=== PATIENT | male | born 1985 | race Caucasian/White ===

== ENCOUNTER → 2016-08-03 | Outpatient (CLI) | payer OTHER ==
--- NOTE | 2016-08-03 15:39 | CT ---
EXAM DESCRIPTION: Soft Tissue Neck w/Contrast CLINICAL HISTORY: CERVICAL LYMPHADENOPATHY COMPARISON: None. TECHNIQUE: Postcontrast CT images of the neck are obtained with coronal and sagittal reconstructed images. CT scan done according to ALARA (As Low As Reasonably Achievable). FINDINGS: Mild mucosal thickening is seen in the maxillary sinuses. Visualized skull base is unremarkable. Bilateral parotid and submandibular glands are normal and. No abnormal mass or enhancement in the posterior pharyngeal soft tissue or base of the tongue is seen. The epiglottis and vocal cords are unremarkable. Thyroid is unremarkable. Vasculature is within normal limits. There are nonspecific less than 1 cm submandibular and cervical chain lymph nodes bilaterally. There is a left submandibular lymph node measuring 1.2 x 1.2 x 3.1 cm. Osseous structures are unremarkable. IMPRESSION: Mildly enlarged left submandibular lymph node is nonspecific. There are other less than 1 cm nonspecific cervical chain lymph nodes in the neck bilaterally. Subacute chronic bilateral maxillary sinus disease is noted. Electronically signed by: Julian Avitia MD 08/03/2016 3:39 PM CDT
== END | disposition home or self-care (01) ==
LOC: CT 11:48
PROVIDERS: ATTEND Family Medicine
DX: R59.0 Localized enlarged lymph nodes (principal)

== ENCOUNTER → 2016-11-11 | Outpatient (CLI) | payer SELFPAY | END | disposition home or self-care (01) | LOC: LAB.REF 08:11 → EDSTATUS 11:02 | PROVIDERS: ATTEND Nurse Practitioner Family | DX: E34.9 Endocrine disorder, unspecified (principal) ==

== ENCOUNTER 2016-12-04 11:09 | Emergency (ER) | payer OTHER ==
--- NOTE | 2016-12-04 11:42 | ED.PDOC ---
History of Present Illness - General Chief Complaint: Problem Stated Complaint: Possible epididymitis Time Seen by Provider: 12/04/16 11:39 Source: patient Exam Limitations: no limitations - History of Present Illness Initial Comments: Ivan العلي 31 y/o male with history of recurrent epidydimytis stated has another exacerbation which started yesterday on his left testes.Denies history of STD,in monogamous relationship .Denies dysuria ,hematuria Timing/Duration: yesterday Quality: sharpness, steady Onset Location: scrotal - left Radiation: none Activites at Onset: none Sexual intercourse history: single partner Improving Factors: nothing Worsening Factors: nothing Associated Symptoms: denies symptoms Allergies/Adverse Reactions: Allergies [place] Allergy (Severe, Verified 12/04/16 11:44) Anaphylaxis Home Medications: Ambulatory Orders Ciprofloxacin HCl [Cipro] 250 mg PO BID #30 tab 12/04/16 Review of Systems - Review of Systems Constitutional: States: no symptoms reported EENTM: States: no symptoms reported Respiratory: States: no symptoms reported Cardiology: States: no symptoms reported Gastrointestinal/Abdominal: States: no symptoms reported Musculoskeletal: States: see HPI Skin: States: no symptoms reported Neurological: States: no symptoms reported Past Medical History (General) - Patient Medical History Hx Other PMH: Yes - PTSD Surgical History: other - hernia repair,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 Family Medical History - Family History Father Family History: No Known Living Status: Still Living Physical Exam - Physical Exam General Appearance: Alert, No apparent distress Eyes, Ears, Nose, Throat Exam: PERRL/EOMI, normal ENT inspection, pharynx normal Neck: non-tender, full range of motion, supple Cardiovascular/Respiratory: regular rate, rhythm, normal peripheral pulses, normal breath sounds, no respiratory distress Gastrointestinal/Abdominal: normal bowel sounds, non tender, soft, no organomegaly Male Genital Exam: normal genitalia, no hernia, epididymal tenderness, scrotum tenderness (L) Back Exam: normal inspection, no CVA tenderness Extremity: normal range of motion, non-tender Neurologic: alert, oriented x 3 Skin Exam: normal color, warm/dry Lymphatic: no adenopathy Progress - Progress Progress: 12/04/16 11:47 Vital Signs - 8 hr 12/04/16 11:36 Temperature 99.2 F Pulse Rate [ 97 H Left Radial] Respiratory 20 Rate Blood Pressure 150/89 [Left Arm] O2 Sat by Pulse 94 L Oximetry Departure - Departure Clinical Impression: Epididymitis, Chronic epididymitis Time of Disposition: 11:47 Disposition: Discharge to Home or Self Care Condition: Good Departure Forms: ED Discharge - Pt. Copy, Patient Portal Self Enrollment Prescriptions: Ciprofloxacin HCl [Cipro] 250 mg PO BID #30 tab Home Medications: Ambulatory Orders Ciprofloxacin HCl [Cipro] 250 mg PO BID #30 tab 12/04/16 Additional Instructions: KEEP appointment with UROLOGIST December 23/2017
[2016-12-04 11:44] VITALS: BP 150/89; TEMP 99.2; O2SAT 94
[2016-12-04] MEDS ORDERED: levoFLOXacin 500 MG TAB PO ONE (11:45)
== END 2016-12-04 11:55 | disposition home or self-care (01) ==
LOC: ER 11:09
DX: N45.1 Epididymitis (principal); Z91.09 Other allergy status, other than to drugs and biological substances

== ENCOUNTER 2017-06-12 07:20 | Emergency (ER) | payer OTHER ==
[2017-06-12 07:34] VITALS: BP 154/88; TEMP 98.3; O2SAT 96
--- NOTE | 2017-06-12 07:43 | ED.PDOC ---
History of Present Illness - General Chief Complaint: Back Pain or Injury Stated Complaint: low back pain Time Seen by Provider: 06/12/17 07:36 Source: patient, Vital Signs reviewed Exam Limitations: no limitations - History of Present Illness Timing/Duration: 1/2 hour, 1 hour Quality/Severity: moderate Back Pain Location: lumbar spine Method of Injury/Prior Injury: prior injury, other - Heavy lifting, getting pt out of truck Improving Factors: immobilization Worsening Factors: movement Associated Symptoms: denies symptoms Allergies/Adverse Reactions: Allergies [place] Allergy (Severe, Verified 12/04/16 11:44) Anaphylaxis Home Medications: Ambulatory Orders Ciprofloxacin HCl [Cipro] 250 mg PO BID #30 tab 12/04/16 Review of Systems - Review of Systems Constitutional: States: no symptoms reported EENTM: States: no symptoms reported Respiratory: States: no symptoms reported Cardiology: States: no symptoms reported Gastrointestinal/Abdominal: States: no symptoms reported Genitourinary: States: no symptoms reported Musculoskeletal: States: back pain, muscle pain Skin: States: no symptoms reported Neurological: States: no symptoms reported Past Medical History (General) - Patient Medical History Hx Seizures: No Hx Asthma: No Hx of COPD: No Hx Cardiac Disorders: No Hx Congestive Heart Failure: No Hx Pacemaker: No Hx Hypertension: No Hx Renal Disease: No - Vaccination History Hx Influenza Vaccination: Yes Family Medical History - Family History Father Family History: No Known Living Status: Still Living Physical Exam - Physical Exam General Appearance: Alert, Obvious distress Eyes, Ears, Nose, Throat Exam: PERRL/EOMI Back Exam: normal inspection, no CVA tenderness, no vertebral tenderness, decreased range of motion, muscle spasm, other - neg straight leg raise bilateral Extremity Exam: no evidence of injury, normal range of motion, no pedal edema Neurologic: no motor/sensory deficits, alert, oriented x 3 Skin Exam: normal color, warm/dry Departure - Departure Clinical Impression: Lumbar back pain Disposition: Discharge to Home or Self Care Condition: Fair Departure Forms: ED Discharge - Pt. Copy, Patient Portal Self Enrollment Home Medications: Ambulatory Orders Ciprofloxacin HCl [Cipro] 250 mg PO BID #30 tab 12/04/16
== END 2017-06-12 08:25 | disposition home or self-care (01) ==
LOC: ER 07:20
DX: M54.5 Low back pain (principal)

== ENCOUNTER → 2018-01-21 | Outpatient (CLI) | payer OTHER | LOC: YCFC.O 09:09 | PROVIDERS: ATTEND Nurse Practitioner Family | DX: R59.0 Localized enlarged lymph nodes (principal) ==

== ENCOUNTER → 2018-04-14 | Outpatient (CLI) | payer OTHER | LOC: LAB.O 10:51 | PROVIDERS: ATTEND Nurse Practitioner Family | DX: Z00.00 Encounter for general adult medical examination without abnormal findings (principal); Z72.52 High risk homosexual behavior; R73.09 Other abnormal glucose; R79.89 Other specified abnormal findings of blood chemistry ==

== ENCOUNTER → 2018-10-14 | Outpatient (CLI) | payer OTHER | LOC: LAB.O 19:32 | PROVIDERS: ATTEND Family Medicine | DX: Z20.6 Contact with and (suspected) exposure to human immunodeficiency virus [HIV] (principal) ==